=== PATIENT | female | born 1985 | race Native Hawaiian/Other Pacific Islander ===

== ENCOUNTER 2017-09-14 11:01 | Emergency (ER) | payer OTHER ==
[~2017-09-14] VITALS: Ht 162.6 cm; Wt 65.8 kg
[2017-09-14 11:10] VITALS: BP 107/73; TEMP 98.1
== END 2017-09-14 11:47 | disposition home or self-care (01) ==
LOC: ED 11:01
DX: M54.5 Low back pain (principal)
CPT/HCPCS: 99281; J1885